=== PATIENT | female | born 1975 | race Caucasian/White ===

== ENCOUNTER 2022-10-18 01:39 | Day surgery (SDC) | payer BC, SELFPAY ==
[2022-10-11 12:48] VITALS: BMI 30.7
--- NOTE | 2022-10-11 13:00 | PC.NURSE ---
Report to the Outpatient Waiting Room, entrance under the green pavilion located off [facility], at time 0845 on date 10/18/22. Planned Procedure Time: 1045. Time changes happen often and if your time is changed the preop area will call you the afternoon before. - You and your visitor will be asked to self-screen and do not enter if you have any COVID symptoms. - A mask is optional within the hospital at this time. Patients may have clear liquids (water, carbonated beverages, clear teas, apple juice) until 3 hours prior to surgery with a maximum of 20 ounces. - No food from midnight until time of surgery Take the following medications with a SIP of water the morning of surgery: TYLENOL IF NEEDED DO NOT STOP ANY OF YOUR OTHER PRESCRIPTION MEDICATIONS PRIOR TO SURGERY ?EXCEPT THE FOLLOWING Medications to discontinue per physician: VITAMINS/SUPPLEMENTS Date to take last dose: 10/14/22 Please no make-up, nail croatian, hairspray, perfume, deodorant, or body powder the day of surgery. No jewelry (including any body piercings) or valuables the day of surgery, leave them at home. Please take a shower or bath the night before, or the morning of, surgery with an antibacterial soap. Wear comfortable, loose fitting clothing. - Jewelry must be removed prior to entering the operating room. Rings and piercings that are not removed may be cut off. - The hospital will not accept responsibility for valuables. - Please leave all valuables, including medications, at home the day of surgery. If you are going home after surgery, a licensed straight truck driver must drive you home. - NO public transportation without another adult if you receive anesthesia. - We recommend that an adult stay with you for 24 hours following discharge. - We also recommend that you do not drive, make important decision, drink alcoholic beverages, or take any drugs that were not prescribed by your health care provider for at least 24 hours after your discharge time. Follow any additional instructions given to you from your surgeon. If you or anyone in your household have experienced Covid symptoms in the past week, please notify your surgeon or the nurse liaison at the phone number below for possible testing. Telephone instructions given to KARINA ARNETT and asked if any additional questions and then verbalized understanding. Patient advised to call surgeon office or pre surgery nurse liaison [phone] if any additional questions.
--- NOTE | 2022-10-18 07:49 | P.PNAN_ITS ---
Anes - Initial Pre Proc Eval Procedure: Operation Date: 10/18/22 10:45 Proposed Procedures p Hysteroscopy Dilation and Curettage - Laura Dan MD Date/Time: 10/18/22 07:49 Surgeon: Laura Dan MD Pre Op Diagnosis: menorrhagia Patient Data Age: 47 Gender: F Height: 1.57 m Weight: 76.2 kg Allergies Allergy/AdvReac Type Severity Reaction Status Date / Time No Known Allergies Allergy Unverified 10/18/22 08:56 Home Medications Medication Instructions Recorded Confirmed Type acetaminophen 500 mg tablet 1,000 mg PO DAILY PRN TENDONITIS 10/11/22 10/18/22 History calcium carbonate 600 mg calcium 600 mg PO DAILY 10/11/22 10/18/22 History (1,500 mg) tablet (Calcium) cetirizine 10 mg tablet (Zyrtec) 10 mg PO DAILY 10/11/22 10/18/22 History fluticasone propionate 50 1 spray intranasal Q12H 10/11/22 10/18/22 History mcg/actuation nasal spray,suspension ibuprofen 200 mg tablet 400 mg PO BID PRN TENDONITIS 10/11/22 10/18/22 History multivitamin 1 tablet PO DAILY 10/11/22 10/18/22 History Patient hx anesthesia problems: none Family hx anesthesia problems: none Results Review: All pre-operative results and documents have been reviewed as part of the pre- operative evaluation. [facility] Past Medical History Medical History (Updated 10/18/22 @ 08:11 by Laura Dan MD) Eczema GERD (gastroesophageal reflux disease) Hemochromatosis PCOS (polycystic ovarian syndrome) Rosacea Social History Social History Smoking status: Never smoker Alcohol intake: current Drinks per week: 1 Substance use: never Substance use type: does not use Living arrangements: with family Spiritual care concerns: No Anes - Eval Final PreProcedure Day of Procedure 10/18/22 07:49 Patient weight: obese Heart: regular rate and rhythm Lungs: clear to auscultation Airway: Mallampati scale class II Neurological: alert and oriented Last oral intake: >/= 8 hours ASA classification: III Emergent: no Anesthetic plan: proceed Anesthesia type and monitoring: general GIVS and standard monitoring Results Review: All pre-operative results and documents have been reviewed as part of the pre- operative evaluation. Informed Consent: The patient's anesthetic plan and its attendant risks and benefits were discussed with the patient/family/POA. Questions were solicited and answers provided to the satisfaction of the patient/family/POA.
--- NOTE | 2022-10-18 08:08 | WPDHPUPDATE1 ---
History and Physical Update Update Date/Time: 10/18/22 08:08 History and Physical has been reviewed, including an updated exam of the patient. There are NO changes in the patient's condition. Risks, benefits, and alternatives have been discussed and questions answered. Patient agrees to proceed with procedure.
--- NOTE | 2022-10-18 08:08 | PM.HPGS ---
History of Present Illness History of Present Illness Consent: Risks, benefits, and alternatives have been discussed and questions answered. Patient agrees to proceed with procedure. Chief complaint: menorrhagia Narrative: Juliette Guo is a 47 year old female with a change in menstrual cycle. Cycles have changed to 7 days instead of 4 and have become very irregular bleeding approximately every 2 weeks. Most recently patient has had bleeding for over 12 days. It was recommended to proceed with D&C hysteroscopy. Risks of infection, bleeding, perforation, possible pathology were reviewed. Patient voices understand and agrees to proceed. Review of Systems Review of Systems: not repeated day of surgery; patient states no changes in status PMFSH Past Medical History Medical History (Updated 10/18/22 @ 08:11 by Laura Dan MD) Eczema GERD (gastroesophageal reflux disease) Hemochromatosis PCOS (polycystic ovarian syndrome) Rosacea Social History Social History Smoking status: Never smoker Alcohol intake: current Drinks per week: 1 Substance use: never Substance use type: does not use Living arrangements: with family Spiritual care concerns: No Meds Home Medications and Allergies Home Medications Medication Instructions Recorded Confirmed Type acetaminophen 500 mg tablet 1,000 mg PO DAILY PRN TENDONITIS 10/11/22 10/11/22 History calcium carbonate 600 mg calcium 600 mg PO DAILY 10/11/22 10/11/22 History (1,500 mg) tablet (Calcium) cetirizine 10 mg tablet (Zyrtec) 10 mg PO DAILY 10/11/22 10/11/22 History fluticasone propionate 50 1 spray intranasal Q12H 10/11/22 10/11/22 History mcg/actuation nasal spray,suspension ibuprofen 200 mg tablet 400 mg PO BID PRN TENDONITIS 10/11/22 10/11/22 History multivitamin 1 tablet PO DAILY 10/11/22 10/11/22 History Allergies Allergy/AdvReac Type Severity Reaction Status Date / Time No Known Allergies Allergy Unverified 10/11/22 12:48 Exam Const: General: healthy appearing and alert Orientation/consciousness: patient oriented x3 Resp: Effort & Inspection: normal respiratory effort GI: GI Palp: Yes Soft to palpation, No Tenderness to palpation present (GI) and No Palpable mass present : External Female Exam: normal external appearance Speculum Exam - Vagina: normal appearance of the vagina and normal vaginal discharge Speculum Exam - Cervix: normal appearance of the cervix Bimanual exam- vagina & uterus: uterine size normal and consistency normal Bimanual Exam- Adnexa, other: normal adnexae and No adnexal tenderness Neuro: General: patient oriented x3 Assessment and Plan Assessment and plan (1) Menorrhagia: Code(s): N92.0 - Excessive and frequent menstruation with regular cycle Status: Acute Assessment and Plan: plan to proceed with D&C hysteroscopy
[2022-10-18 08:37] VITALS: BP 114/74; PULSE 65; RESP 20; TEMP 36.2; O2SAT 100
[2022-10-18] MEDS: LACTATED RINGERS 1,000 ML 30 ML IV CONT (09:05)
[2022-10-18 10:17] VITALS: BP 115/69; PULSE 65; RESP 14; O2SAT 100
--- NOTE | 2022-10-18 10:31 | W.PM.PROC2 ---
Procedure Note - Detailed Date of Procedure 10/18/22 Pre-op Diagnosis menorrhagia Post-op Diagnosis Same Procedure Performed D&C hysteroscopy with resection of endometrial polyp Surgeon Laura Dan MD Anesthesia MAC Findings The uterus sounds to 7cm. There is a posterior polyp arising from the endocervical endometrial junction. The remainder of the endometrium appears grossly normal. Description of Procedure The patient is taken to the operating room and placed under anesthesia in the dorsal lithotomy position. Hawthorne speculum was placed in the vagina and the cervix grasped on the anterior lip a tenaculum. The uterus is sounded to 7cm. The hysteroscope was placed with a polyp noted the resection device is opened and placed. Under direct visualization the polyp is removed in its entirety with the Aveeta resection device. The hysteroscope was removed and the endometrium curetted with a sharp curette until a good uterine cry was noted in all areas. Silver nitrate was applied to the left tenaculum site for hemostasis. All instruments are removed. Sponge, needle, and instrument counts are correct per the OR staff. Patient is awakened from anesthesia and taken to recovery in stable condition. Estimated Blood Loss 5 Drains No Packing No Pathology Yes ( Endometrial shavings and curettings) Complications No immediate complications Condition Stable Disposition PACU
[2022-10-18 10:45] VITALS: BP 112/72; PULSE 59; RESP 14; O2SAT 99
[2022-10-18 11:15] VITALS: BP 124/75; PULSE 61; RESP 14
== END 2022-10-18 11:32 | disposition home or self-care (01) ==
PROVIDERS: Visit Provider Obstetrics & Gynecology Gynecology
PROC: 0U5B8ZZ Destruction of Endometrium, Via Natural or Artificial Opening Endoscopic (ICD-10-PCS; CPT 58563; principal; 2022-10-18 10:45)
DX: N92.0 Excessive and frequent menstruation with regular cycle (principal); E66.9 Obesity, unspecified; Z68.31 Body mass index [BMI] 31.0-31.9, adult
CPT/HCPCS: 58558; 88305; J2250; J2405; J2704; J3010; J7120